=== PATIENT | female | born 1950 | race Hispanic/Latino ===

== ENCOUNTER 2017-02-08 14:44 | Emergency (ER) | payer MEDICARE ==
[2017-02-08 14:54] VITALS: BP 154/85; PULSE 89; RESP 18; TEMP 98; O2SAT 98
[2017-02-08] MEDS ORDERED: Silver Sulfadiazine 1% Cream (20 gm) TOP STA (14:58)
[2017-02-08] MEDS ORDERED: Silver Sulfadiazine 1% CREAM (50 gm) ONE (15:01)
--- NOTE | 2017-02-08 15:10 | ED PDOC ---
Burn Injury/Smoke Inhalation Time Seen by Provider: 02/08/17 15:02 Chief Complaint (Nursing): Burn Chief Complaint (Provider): Left Arm Burn History Per: Patient History/Exam Limitations: no limitations Injury Occurred (Timing): Hours Ago: Burn Descrption: Left: Arm Smoke Inhalation: None Additional Complaint(s): Jolynn Otero is a 67 year old female that presents to the ED with a chief complaint of a burn on her left forearm that she obtained a few hours prior to arrival. Patient reports that she was boiling water to make coffee earlier today and accidentally spilled the water onto her arm, at which point she immediately placed the affected area under cold water, and afterwards applied a cold compress. Patient denies nausea or vomiting. Past Medical History Reviewed: Historical Data, Nursing Documentation, Vital Signs Vital Signs: Last Vital Signs Temp 98 F 02/08/17 14:52 Pulse 89 02/08/17 14:52 Resp 18 02/08/17 14:52 BP 154/85 H 02/08/17 14:52 Pulse Ox 98 02/08/17 14:52 - Surgical History Surgical History: Appendectomy Other surgeries: hernia repair on left side of groin, ankle surgery. - Family History Family History: States: Unknown Family Hx - Social History Current smoker - smoking cessation education provided: No Alcohol: None Drugs: Denies - Allergies Allergies/Adverse Reactions: Allergies Allergy/AdvReac Type Severity Reaction Status Date / Time ampicillin Allergy RASH Verified 02/08/17 14:49 dapsone Allergy RASH Verified 02/08/17 14:51 erythromycin base Allergy RASH Verified 02/08/17 14:50 ibuprofen [From Advil] Allergy RASH Verified 02/08/17 14:51 Tetracyclines Allergy RASH Verified 02/08/17 14:49 Review of Systems Gastrointestinal: Negative for: Nausea, Vomiting Skin: Positive for: Other (burn on left arm) Physical Exam - Reviewed Nursing Documentation Reviewed: Yes Vital Signs Reviewed: Yes - Physical Exam Appears: Positive for: Non-toxic, No Acute Distress Head Exam: Positive for: ATRAUMATIC, NORMOCEPHALIC Skin: Positive for: Warm. Negative for: Normal Color (left arm reddened due to burn) Cardiovascular/Chest: Positive for: Regular Rate, Rhythm. Negative for: Murmur Respiratory: Positive for: Normal Breath Sounds. Negative for: Wheezing Extremity: Positive for: Normal ROM (full ROM left arm), Capillary Refill (< 2 seconds), Other (Superficial burn to left volar wrist. No blistering or break in skin noted to left volar wrist. ). Negative for: Swelling - ECG O2 Sat by Pulse Oximetry: 98 (RA) Pulse Ox Interpretation: Normal Medical Decision Making Medical Decision Making: Impression: Superficial Burn on Left Volar Wrist Plan: * Patient given Silver Sulfadiazine in ED, and advised to take Tylenol if needed for pain. No further ED workup required, patient stable for discharge home. Scribe Attestation: Documented by Nuria Finley, acting as a scribe for Tracey Mart PA-C. Provider Scribe Attestation: All medical record entries made by the Scribe were at my direction and personally dictated by me. I have reviewed the chart and agree that the record accurately reflects my personal performance of the history, physical exam, medical decision making, and the department course for this patient. I have also personally directed, reviewed, and agree with the discharge instructions and disposition. Disposition - Clinical Impression Clinical Impression: Burn injury - Patient ED Disposition Is Patient to be Admitted: No Counseled Patient/Family Regarding: Diagnosis, Need For Followup - Disposition Disposition: Routine/Home Disposition Time: 15:05 Condition: STABLE Instructions: Superficial Burn (ED)
== END 2017-02-08 15:41 | disposition home or self-care (01) ==
LOC: H.ER 14:44
DX: T23.072A Burn of unspecified degree of left wrist, initial encounter (principal); X12.XXXA Contact with other hot fluids, initial encounter; Y93.H3 Activity, building and construction